=== PATIENT | female | born 2000 | race Two or more races ===

== ENCOUNTER → 2024-08-19 | Outpatient (CLI) | payer MEDICAID, SELFPAY ==
--- NOTE | 2024-08-19 16:15 | XR_ITS ---
Examination: Urinary bladder sonography TECHNIQUE: Grayscale sonographic images urinary bladder Exam date and time: August 19, 2024 1622 hours INDICATIONS: Intermittent painful urination beginning 4 years ago FINDINGS: No bladder mass or bladder calculi Bladder prevoid volume 72 cc bladder postvoid volume 0 cc IMPRESSION: No bladder mass or bladder calculi
== END | disposition home or self-care (01) ==
LOC: CDIM 15:55
PROVIDERS: Referring Provider Physician Assistant Medical; Visit Provider Physician Assistant Medical
DX: R35.0 Frequency of micturition (principal); R30.0 Dysuria
CPT/HCPCS: 76857

== ENCOUNTER 2025-01-12 22:52 | Emergency (ER) | payer MEDICAID, SELFPAY ==
[2025-01-12 22:53] VITALS: BMI 28.3
[2025-01-12 23:18] VITALS: BP 115/78; PULSE 82; RESP 16; TEMP 36.9; O2SAT 97
[2025-01-12] MEDS: MG HYD/AL HYD/SIME (Maalox Reg) SUSP 30 ML UDC PO (23:48)
[2025-01-12] MEDS: FAMOTIDINE 20 MG TABLET PO (23:48)
[2025-01-12] MEDS: ONDANSETRON ODT 4 MG TABRAP PO (23:48)
--- NOTE | 2025-01-13 00:12 | EDNOTE_ITS ---
<Statement entered by Gloria Nichols MD - 01/13/25 21:02> As co-signing physician, I was present and available for consult prn. I concur with the plan and care as documented by the midlevel provider. ED Abdominal Pain RME/HPI General Chief Complaint: Abdominal Pain Stated complaint: ABD PAIN Time seen by provider: 01/12/25 23:29 Arrival date/time: 01/12/25 22:52 25F with history of psych/drug presents to ED with several days of burning epigastric pain and N/V. Limitations: no limitations Related Data Previous Rx's ?Medication ?Instructions ?Recorded magnesium citrate 150 ml PO BID PRN constipati on 05/31/22 #296 mL Allergies Allergy/AdvReac Type Severity Reaction Status Date / Time No Known Allergies Allergy Verified 09/22/23 23:49 Review of Systems Review of Systems Systems Reviewed: All systems reviewed, normal except as documented Constitutional Constitutional: Reports system reviewed and no additional complaints, except as documented, Denies fever(s) and Denies headache(s) ENT Ears, Nose, Mouth, and Throat: Denies disequilibrium and Denies headache(s) Cardiovascular Cardiovascular: Reports system reviewed and no additional complaints, except as documented, Denies chest pain and Denies dyspnea Respiratory Respiratory: Reports system reviewed and no additional complaints, except as documented, Denies cough and Denies dyspnea Gastrointestinal Gastrointestinal: Reports system reviewed and no additional complaints, except as documented, Reports as per HPI, Reports abdominal pain, Reports nausea and Reports vomiting Neurologic Neurologic: Reports system reviewed and no additional complaints, except as documented, Denies confusion, Denies disequilibrium and Denies headache(s) Psychiatric Psychiatric: Denies confusion Past Medical History Past Medical History CARDIAC: Negative Congestive Heart Failure RESPIRATORY: Negative Chronic Obstructive Pulmonary Disease (COPD) GENITOURINARY: Negative Renal Disease ENDOCRINE: Negative Diabetes Mellitus Type 1 or Diabetes Mellitus Type 2 Social History SMOKING STATUS: Never smoker ED Exam General Limitations: Present no limitations General appearance: Present alert and in no apparent distress Head Head exam: Present atraumatic Eye Eye exam: Present normal appearance, PERRL and EOMI ENT ENT exam: Present normal exam, normal oropharynx and mucous membranes moist Neck Neck exam: Present normal inspection, full ROM and trachea midline Chest Chest inspection: Present normal inspection and symmetric chest wall rise Respiratory Respiratory exam: Present normal lung sounds bilaterally Cardiovascular Cardiovascular exam: Present regular rate, normal rhythm and normal heart sounds Abdominal Exam Abdominal exam: Present soft and normal bowel sounds Extremities Exam Extremities exam: Present normal inspection and full ROM Back Exam Back exam: Present normal inspection and full ROM Neurological Exam Neurological exam: Present alert, oriented X3 and CN II-XII intact Psychiatric Psychiatric exam: Present normal affect and normal mood Skin Skin exam: Present warm, dry, intact and normal color Course Quality Measures none Orders Category Date Time Status Famotidine [Pepcid] Med 01/12/25 23:29 Discontinued 20 mg PO X1 ONE Ondansetron Odt [Zofran Odt] Med 01/12/25 23:29 Discontinued 4 mg PO X1 ONE mg Hyd/Al Hyd/Ashyl Susp [Maalox Susp] Med 01/12/25 23:29 Discontinued 30 ml PO X1 ONE Vital Signs Vital signs: Vital Signs Temperature 98.4 F 01/12/25 23:18 Pulse Rate 82 01/12/25 23:18 Respiratory Rate 16 01/12/25 23:18 Blood Pressure 115/78 01/12/25 23:18 Pulse Oximetry (%) 97 01/12/25 23:18 Oxygen Delivery Method Room Air 01/12/25 23:18 O2 at 97% on RA and WNLs Abdominal Pain MDM MDM Narrative MDM Narrative:: 25F with history of psych/drug presents to ED with several days of burning epigastric pain and N/V. Physical exam reveals no ab tenderness. Patient is afebrile, calm, and alert. Patient eloped. Patient data External records reviewed:: [facility] previous records Clinical information provided by:: patient Social determinants that could affect healthcare access:: mental health Patient has the following chronic illnesses:: psych/drug How is presenting disease/condition affected by chronic disease/condition?: exacerbated by Evaluation data The following diagnostics were reviewed and interpreted by me:: other (specify) (none) Lab and/or radiology exams considered but not ordered:: not ordered Interpretation Summary: n/a Medications / Prescriptions Medications or Prescriptions considered but not ordered:: ordered Medication administrations:: Medication Administration History Discontinued Medications Al Hydrox/Mg Hydrox/Simethicone (Mg Hyd/Al Hyd/Ashly (Maalox Reg) Susp 30 Ml Udc) 30 ml PO X1 ONE Stop: 01/12/25 23:30 Last Admin: 01/12/25 23:48 Dose: 30 ml Documented By: KF Famotidine (Famotidine 20 Mg Tablet) 20 mg PO X1 ONE Stop: 01/12/25 23:30 Last Admin: 01/12/25 23:48 Dose: 20 mg Documented By: LIDIA Ondansetron HCl (Ondansetron Odt 4 Mg Tabrap) 4 mg PO X1 ONE; Protocol Stop: 01/12/25 23:30 Last Admin: 01/12/25 23:48 Dose: 4 mg Documented By: LIDIA above Consultations Consultation(s) initiated? (list below): No Diagnosis Differential diagnosis abdominal pain: abdominal pain, acute appendicitis, calculus of kidney, constipation, diverticulitis, endometriosis, gastroenteritis, pancreatitis, small bowel obstruction and other (GERD) Most likely diagnosis given after review of the tests above:: GERD Admission Indicated Admission indicated?: not indicated Admission Request Was there a request for admission?: No Disposition Plan Disposition Plan: Discharge Discharge Attestation Discharge Attestation: The patient and all family members were given an opportunity to ask questions and understood the discharge instructions. Discharge instructions specifically effects, indications for sooner follow up or return to the emergency department, and the expected course of current diagnosis. Patient condition: Stable Discharge Plan Plan Patient Disposition: Elopement Prescriptions/Referrals Prescriptions/Med Rec: No Action magnesium citrate Solution 150 ml PO BID PRN (Reason: constipation) Qty: 296 0RF Referrals: William Barclay MD [Primary Care Provider] - In 1 week Problem List Clinical Impression: GERD (gastroesophageal reflux disease) Patient/Caregiver Discharge Instructions Print Language: Moldovan
== END 2025-01-13 01:43 | disposition left against medical advice (07) ==
PROVIDERS: Emergency Provider Emergency Medicine; PCP Family Medicine
DX: K21.9 Gastro-esophageal reflux disease without esophagitis (principal); Z53.29 Procedure and treatment not carried out because of patient's decision for other reasons
CPT/HCPCS: 99281; Q0162; A9270

== ENCOUNTER 2025-01-13 16:56 | Emergency (ER) | payer MEDICAID, SELFPAY ==
[2025-01-13 16:57] VITALS: BMI 28.3
[2025-01-13 17:23] VITALS: BP 117/74; PULSE 94; RESP 18; TEMP 37.1; O2SAT 98
--- NOTE | 2025-01-13 17:52 | PD.EDABDPN ---
ED Abdominal Pain RME/HPI General Chief Complaint: Abdominal Pain Stated complaint: ABD PAIN Time seen by provider: 01/13/25 17:49 Arrival date/time: 01/13/25 16:56 Source: patient Mode of arrival: ambulatory Limitations: no limitations RME / HPI RME / HPI narrative: 25-year-old female presents to the ED with complaint of epigastric pain and a burning sensation upon consuming food. MD complaint: abdominal pain Severity scale (1-10): 4 Radiation: epigastric Relieving factors: nothing Related Data Previous Rx's ?Medication ?Instructions ?Recorded magnesium citrate 150 ml PO BID PRN constipation 05/31/22 #296 mL cephalexin 500 mg capsule 500 mg PO Q8H #21 caps 01/13/25 Allergies Allergy/AdvReac Type Severity Reaction Status Date / Time No Known Allergies Allergy Verified 01/13/25 16:59 Review of Systems Constitutional Constitutional: Reports system reviewed and no additional complaints, except as documented Eyes Eyes: Reports system reviewed and no additional complaints, except as documented, Denies dry eyes, Denies exophthalmos and Reports floaters Cardiovascular Cardiovascular: Denies chest pain with activity and Denies claudication ED Exam Narrative Physical exam: Abdomen is tender to palpation at the area of the xiphoid process. There is no apparent masses and there is no apparent guarding. The abdomen is soft and symmetrical. General Limitations: Present no limitations General appearance: Present alert and in no apparent distress Head Head exam: Present atraumatic Eye Eye exam: Present normal appearance and EOMI ENT ENT exam: Present normal exam, normal oropharynx and mucous membranes moist Neck Neck exam: Present normal inspection, full ROM and trachea midline Chest Chest inspection: Present normal inspection and symmetric chest wall rise Respiratory Respiratory exam: Present normal lung sounds bilaterally Cardiovascular Cardiovascular exam: Present regular rate, normal rhythm and normal heart sounds Abdominal Exam Abdominal exam: Present soft and normal bowel sounds Extremities Exam Extremities exam: Present normal inspection and full ROM Back Exam Back exam: Present normal inspection and full ROM Neurological Exam Neurological exam: Present alert and oriented X3 Psychiatric Psychiatric exam: Present normal affect and normal mood Skin Skin exam: Present warm, dry, intact and normal color Course Course Course Narrative: CBC, CMP, UA, hCG. Quality Measures none Orders Category Date Time Status CBC Stat Lab 01/13/25 18:05 Completed CMP [Comprehensive Metabolic Panel] Stat Lab 01/13/25 18:05 Completed UA [Urinalysis] Stat Lab 01/13/25 18:33 Completed Done Vital Signs Vital signs: Vital Signs Temperature 98.8 F 01/13/25 17:23 Pulse Rate 94 01/13/25 17:23 Respiratory Rate 18 01/13/25 17:23 Blood Pressure 117/74 01/13/25 17:23 Pulse Oximetry (%) 98 01/13/25 17:23 Oxygen Delivery Method Room Air 01/13/25 17:23 Pulse ox on room air is 98%. Abdominal Pain MDM MDM Narrative MDM Narrative:: Patient will be discharged in no apparent distress. She has to follow-up with primary care physician. She is to consume the medication that was prescribed to her while she was here in the emergency department yesterday. Patient will have cephalexin prescribed for her urinary tract infection Patient data External records reviewed:: Other (specify) (N/A) Clinical information provided by:: none (N/A) Social determinants that could affect healthcare access:: none (N/A) Patient has the following chronic illnesses:: N/A How is presenting disease/condition affected by chronic disease/condition?: caused by (Food) Evaluation data The following diagnostics were reviewed and interpreted by me:: lab results Lab and/or radiology exams considered but not ordered:: CBC, CMP, were within her normal limits, UA demonstrates a mild urinary tract infection. Interpretation Summary: UTI Medications / Prescriptions Medications or Prescriptions considered but not ordered:: NA Medication administrations:: N/A Consultations Consultation(s) initiated? (list below): No Diagnosis Differential diagnosis abdominal pain: abdominal pain, constipation, diverticulitis and gastroenteritis Most likely diagnosis given after review of the tests above:: Urinary tract infection Admission Indicated Admission indicated?: not indicated Explain why admission is indicated or not indicated:: N/A Admission Request Was there a request for admission?: No Admission Attestation Admission request attestation: N/A Disposition Plan Disposition Plan: Discharge Discharge Attestation Discharge Attestation: The patient and all family members were given an opportunity to ask questions and understood the discharge instructions. Discharge instructions specifically effects, indications for sooner follow up or return to the emergency department, and the expected course of current diagnosis. Patient condition: Stable Discharge Plan Plan Patient Disposition: HOME (Self Care) Discharge Disposition comment: Discharge no apparent distress Patient condition on transfer: Stable Prescriptions/Referrals Prescriptions/Med Rec: New cephalexin 500 mg capsule 500 mg PO Q8H Qty: 21 0RF No Action magnesium citrate Solution 150 ml PO BID PRN (Reason: constipation) Qty: 296 0RF Referrals: William Barclay MD [Primary Care Provider] - In 1 week Problem List Clinical Impression: Urinary tract infection Patient/Caregiver Discharge Instructions Education Materials: Anatomy of the Female Urinary Tract Print Language: Montenegrin Stand Alone Forms: [employer]ess[employer] Award Info., Patient Portal Info Letter
[2025-01-13 18:27] LABS: Basophils % (Auto) 0 % (0-2.5); Eosinophils # (Auto) 0.1 Thou/mm3 (0.0-0.5); Eosinophils % (Auto) 1 % (0-10); Hematocrit 37.2 % (36.0-46.0); Hemoglobin 13.4 g/dL (12.0-16.0); Immature Granulocytes % (Auto) 0 % (0-0); Immature Granulocytes Auto 0.01 Thou/mm3 (0.00-0.00); Lymphocytes # (Auto) 2.3 Thou/mm3 (1.0-4.8); Lymphocytes % (Auto) 33 % (10-50); Mean Corpuscular Hemoglobin 30.3 pg (25.0-35.0); Mean Corpuscular Volume 84 fL (80-100); Monocytes # (Auto) 0.7 Thou/mm3 (0.0-0.8); Monocytes % (Auto) 11 % (0-12); Neutrophils # (Auto) 3.7 Thou/mm3 (1.8-7.7); Neutrophils % (Auto) 55 % (37-80); Nucleated Red Blood Cell % 0 /100 WBC (0); Platelet Count 287 Thou/mm3 (140-440); RDW Standard Deviation 40.9 fL (36.4-46.3); Red Blood Count 4.42 Miln/mm3 (4.00-5.20); White Blood Count 6.9 Thou/mm3 (3.6-11.0)
[2025-01-13 18:44] LABS: Collection Type, Urine Clean Catch
[2025-01-13 18:45] LABS: Alanine Aminotransferase 10 U/L (10-49); Albumin, Serum 5.2 gm/dL (3.5-5.0); Albumin/Globulin Ratio 2.5 (1.2-2.2); Alkaline Phosphatase 53 U/L (46-116); Anion Gap 9 (7-16); Aspartate Amino Transferase 18 U/L (0-34); BUN/Creatinine Ratio 14 Ratio (12-20); Bilirubin,Total 0.9 mg/dL (0.3-1.2); Blood Urea Nitrogen 11 mg/dL (9-23); Calcium 10.7 mg/dL (8.3-10.6); Calcium (Corrected) 10.7 mg/dL (8.5-10.1); Carbon Dioxide 25.6 mMol/L (20.0-31.0); Chloride 101 mMol/L (98-107); Creatinine (Component) 0.8 mg/dL (0.6-1.3); Estimated Creatinine Clearance 99.6 mL/min (>60); Globulin 2.1 gm/dL (2.3-3.5); Glucose 113 mg/dL (74-106); Osmolality,Calculated 272 (275-295); Potassium 3.8 mMol/L (3.4-5.1); Sodium 136 mMol/L (136-145); Total Protein 7.3 gm/dL (5.7-8.2); eGFR > 60 See Note
[2025-01-13 18:56] LABS: Amorphous Crystals,Urine Present (Absent); Bilirubin,Urine Negative (Negative); Blood,Urine Negative (Negative); Color,Urine Lt-Yellow (Lt Yel-Yel); Glucose, Urine Negative (Negative); Ketones,Urine 1+ (Negative); Leukocyte Esterase,Urine Negative (Negative); Nitrite,Urine Negative (Negative); Protein,Urine Trace (Neg - Trace); RBC,Urine 5 /hpf (0-3); Specific Gravity,Urine 1.022 (1.001-1.035); Squamous Epithelial Cell,Urine 1 /hpf (0-5); Urobilinogen,Urine Negative mg/dL (0.0-1.0); WBC,Urine 1 /hpf (0-5)
[2025-01-13 19:01] LABS: Clarity,Urine Cloudy (Clear/Hazy)
== END 2025-01-13 20:27 | disposition home or self-care (01) ==
PROVIDERS: Physician Assistant; Emergency Provider Emergency Medicine; PCP Family Medicine
DX: N39.0 Urinary tract infection, site not specified (principal)
CPT/HCPCS: 36415; 80053; 81001; 85025; 99283